=== PATIENT | male | born 1965 | race African-American/Black ===

== ENCOUNTER 2019-08-11 12:57 | Inpatient (IN) | payer MEDICARE ==
[~2019-08-11] VITALS: Ht 185.4 cm; Wt 142.0 kg
[2019-08-11 14:08] LABS: BASOPHILS % (AUTO) 0.7 % (0.0-5.0); EOSINOPHILS % (AUTO) 1.8 % (0.0-8.0); HEMATOCRIT 27.7 % (42-54); LYMPHOCYTES % (AUTO) 15.3 % (21.0-51.0); MEAN CORPUSCULAR HEMOGLOBIN 24.4 pg (27.0-33.0); MEAN CORPUSCULAR HGB CONC 31.4 g/dL (32.0-36.0); MEAN CORPUSCULAR VOLUME 77.8 fL (79-99); NEUTROPHILS % (AUTO) 73.6 % (40.0-77.0); PLATELET COUNT (AUTO) 471 K/uL (130-400); RED BLOOD CELL COUNT(AUTO) 3.56 MIL/uL (4.50-6.20); RED CELL DISTRIBUTION WIDTH 18.4 % (11.0-15.5); WHITE BLOOD COUNT (AUTO) 10.6 K/uL (4.8-10.8)
[2019-08-11 14:21] LABS: INR 1.12 (0.85-1.15); PARTIAL THROMBOPLASTIN TIME 32.1 SEC (26.3-35.5)
[2019-08-11 14:23] LABS: ALBUMIN 2.1 g/dL (3.5-5.0); BILIRUBIN,TOTAL 0.5 mg/dL (0.2-1.0); POTASSIUM 4.3 mmol/L (3.5-5.1); TOTAL PROTEIN, SERUM 6.7 g/dL (6.0-8.3)
[2019-08-11] MEDS ORDERED: PHARMACY COMMUNICATION MISC SCH (16:15)
[2019-08-11 16:46] LABS: % IRON SATURATION 35.9 % (30-44)
[2019-08-11 20:00] VITALS: BP 105/47
[2019-08-11] MEDS: GABAPENTIN 300 MG CAPSULE PO SCH (21:00)
[2019-08-11] MEDS: PANTOPRAZOLE SODIUM 40 MG TABLET.DR PO SCH (21:04)
[2019-08-11] MEDS ORDERED: GABAPENTIN 300 MG CAPSULE ONE (21:08)
[2019-08-11] MEDS: CHOLESTYRAMINE PACKET 4 GM PACKET PO SCH (21:17)
[2019-08-11 22:50] VITALS: BP 99/47
[2019-08-12 00:20] VITALS: BP 107/52
[2019-08-12 04:33] VITALS: BP 113/71
[2019-08-12] MEDS ORDERED: PANT40TA54 PO (05:46)
[2019-08-12] MEDS ORDERED: FOLI0.8T PO (05:46)
[2019-08-12] MEDS ORDERED: GABA-529 PO (05:46)
[2019-08-12] MEDS ORDERED: QUESL4 PO (05:46)
[2019-08-12] MEDS ORDERED: FOLI1TAB61 PO (05:46)
[2019-08-12] MEDS ORDERED: MIDO10TA PO (05:46)
[2019-08-12 06:01] LABS: EOSINOPHILS % (AUTO) 3.1 % (0.0-8.0); HEMATOCRIT 29.7 % (42-54); LYMPHOCYTES % (AUTO) 16.3 % (21.0-51.0); MEAN CORPUSCULAR HEMOGLOBIN 24.8 pg (27.0-33.0); MEAN CORPUSCULAR HGB CONC 31.6 g/dL (32.0-36.0); MEAN CORPUSCULAR VOLUME 78.4 fL (79-99); MONOCYTES % (AUTO) 7.2 % (3.0-13.0); NEUTROPHILS % (AUTO) 70.8 % (40.0-77.0); PLATELET COUNT (AUTO) 408 K/uL (130-400); RED BLOOD CELL COUNT(AUTO) 3.79 MIL/uL (4.50-6.20); RED CELL DISTRIBUTION WIDTH 18.9 % (11.0-15.5); WHITE BLOOD COUNT (AUTO) 8.3 K/uL (4.8-10.8)
[2019-08-12 06:25] LABS: MAGNESIUM 2.1 mg/dL (1.80-2.40); PHOSPHORUS 7.8 mg/dL (2.5-4.9); POTASSIUM 4.4 mmol/L (3.5-5.1)
[2019-08-12 06:28] LABS: CREATININE 19.8 mg/dL (0.5-1.5)
[2019-08-12] MEDS: GABAPENTIN 300 MG CAPSULE PO SCH ×3 (09:00→20:28)
[2019-08-12] MEDS: PANTOPRAZOLE SODIUM 40 MG TABLET.DR PO SCH ×2 (09:00→20:27)
[2019-08-12] MEDS: CHOLESTYRAMINE PACKET 4 GM PACKET PO SCH ×2 (09:00→20:28)
--- NOTE | 2019-08-12 09:34 | NUR ---
DCP: SKILLED NURSING PLACEMENT/ [facility] Tena met with pt who deferred me to Lily Ho [phone]. "It's too early to be answering all these questions". Tena called and she reports that pt lives with her at home. Pt on SSD, is bed bound, total care. states pt was in [facility] 05/27 for 2 1/2 weeks then sent to [facility] and was just released this . states that [facility] was setup for nursing 2x a week and PT 2x a week since dc, but has had to take [facility] to care for pt at home. states he has cane walker w/c, hospital bed mitesh lift shower chair, but she can not do it alone. states she and pt have contacted [facility] and was waiting to discuss manager terminal placement with them, but [facility] has not called back. wants to pursue placement at [facility] during this admission. Pt is over income for [facility] Medicaid. gave verbal consent for referral to [facility]. CM to make referral, follow and assist as needed Addendum: 08/12/19 at 0941 by ARNEL VERA Amended: Links added.
[2019-08-12] MEDS ORDERED: HEPARIN SODIUM 1000UNIT/ML 10ML VIAL ONE (11:49)
[2019-08-12] MEDS ORDERED: LIDOCAINE HCL 1% MDV 50ML VIAL ONE (11:50)
[2019-08-12] MEDS ORDERED: FENTANYL CITRATE PF 50 MCG/1 ML 2ML VIAL ONE (11:50)
[2019-08-12] MEDS ORDERED: MIDAZOLAM HCL 1 MG/ML 2ML VIAL ONE (11:50)
[2019-08-12] MEDS ORDERED: IODIXANOL 320 MG/ML 100 ML VIAL ONE (12:44)
[2019-08-12 15:27] VITALS: BP 126/59
--- NOTE | 2019-08-12 19:37 | NUR ---
REFUSED CT SCAN PATIENT HAS REFUSED CT OF LUMBAR SPINE, CT HEAD/BRAIN, CT THORACIC SPINE, TOLD DESIGN LEAD THAT HE IS IN TOO MUCH PAIN FOR THE PROCEDURE. CALLED DR MIKE TO NOTIFY OF PATIENT REFUSING CT'S. PASSED ON REPORT TO NIGHTSHIFT STAFF WELL.
[2019-08-12 20:08] VITALS: BP 110/54
[2019-08-12] MEDS: Vitamin B Complex/Vit C/Folic Acid PO SCH (20:28)
[2019-08-12] MEDS: FOLIC ACID 1 MG TABLET PO SCH (20:28)
[2019-08-13] VITALS (7 sets, daily range): BP systolic 88–123; BP diastolic 48–69
[2019-08-13] MEDS: GABAPENTIN 300 MG CAPSULE PO SCH ×3 (09:00→21:26)
[2019-08-13] MEDS ORDERED: PHARMACY COMMUNICATION MISC SCH (09:15)
[2019-08-13] MEDS: PANTOPRAZOLE SODIUM 40 MG TABLET.DR PO SCH ×2 (09:39→21:25)
[2019-08-13] MEDS: Vitamin B Complex/Vit C/Folic Acid PO SCH (09:39)
[2019-08-13] MEDS: CHOLESTYRAMINE PACKET 4 GM PACKET PO SCH ×2 (09:39→21:25)
[2019-08-13] MEDS: FOLIC ACID 1 MG TABLET PO SCH (09:39)
[2019-08-13] MEDS ORDERED: COMPOUND PO MISCELLANEOUS 1 EACH MISC MISC PRN (10:00)
[2019-08-13] MEDS ORDERED: GABAPENTIN 100 MG CAPSULE ONE ×2 (10:34→14:37)
[2019-08-13] MEDS: MIDODRINE HCL 5 MG TABLET PO SCH (13:59)
[2019-08-13] MEDS: VANCOMYCIN 250MG/5ML ORAL SOLUTION 40ML PO SCH ×6 (14:00→21:28)
[2019-08-13] MEDS ORDERED: HEPARIN SODIUM 5000UNIT/ML 1ML VIAL ONE (14:38)
[2019-08-13] MEDS: EPOETIN ALFA 10,000 UNIT/ML VIAL SQ SCH (14:41)
[2019-08-13 17:02] LABS: CREATININE 3.1 mg/dL (0.5-1.5)
[2019-08-13 17:11] LABS: POTASSIUM 2.9 mmol/L (3.5-5.1)
[2019-08-13] MEDS: SEVELAMER HCL 800 MG TABLET PO SCH (17:49)
[2019-08-13] MEDS ORDERED: POTASSIUM CHLORIDE 20 MEQ ERTAB PO SCH (18:30)
[2019-08-14 04:00] VITALS: BP 84/65
[2019-08-14 08:00] VITALS: BP 74/36
[2019-08-14] MEDS: SEVELAMER HCL 800 MG TABLET PO SCH ×3 (08:00→16:24)
--- NOTE | 2019-08-14 08:00 | NUR ---
refusing lab pt awakens with verbal stimulation, oriented to person and place. pt refusing medications, vs, and lab draws. Dr Diana Morales in to see pt, spoke to pt, pt continues to refuse. pt educated on importance of taking medication as prescribed and having labs drawn. pt refused
[2019-08-14] MEDS: GABAPENTIN 300 MG CAPSULE PO SCH ×3 (09:00→21:09)
[2019-08-14] MEDS: PANTOPRAZOLE SODIUM 40 MG TABLET.DR PO SCH ×2 (09:36→21:09)
[2019-08-14] MEDS: VANCOMYCIN 250MG/5ML ORAL SOLUTION 40ML PO SCH ×8 (09:36→21:10)
[2019-08-14] MEDS: MIDODRINE HCL 5 MG TABLET PO SCH ×2 (09:36→21:09)
[2019-08-14] MEDS: Vitamin B Complex/Vit C/Folic Acid PO SCH (09:36)
[2019-08-14] MEDS: CHOLESTYRAMINE PACKET 4 GM PACKET PO SCH ×2 (09:37→21:11)
[2019-08-14] MEDS: FOLIC ACID 1 MG TABLET PO SCH (09:37)
[2019-08-14] MEDS: HEPARIN SODIUM 5000UNIT/ML 1ML VIAL SQ SCH (09:50)
--- NOTE | 2019-08-14 10:00 | NUR ---
WORKERS COMPENSATION DEFENSE ATTORNEY visit Denisha Eldridge WORKERS COMPENSATION DEFENSE ATTORNEY in to see pt, aware of temperature and pt refusing labs and vs. assessed and spoke to pt.
[2019-08-14] MEDS ORDERED: ACETAMINOPHEN 325 MG TAB PO PRN (11:00)
--- NOTE | 2019-08-14 13:27 | NUR ---
ATTEMPTED DCP WITH PATIENT/UPSET TRIED TO MEET WITH PATIENT IN ROOM BUT PATIENT UPSET AND DID NOT WISH TO SPEAK TO ME AT THE MOMENT, WILL FOLLOW UP AT LATE TIME/DATE.
[2019-08-14 16:00] VITALS: BP 112/76
--- NOTE | 2019-08-14 17:10 | NUR ---
refusing medication call placed to germination testing manager, Denisha Eldridge KIER OPERATOR returned call and made aware pt temp 101.1, refusing medications and labs. call placed to Aaliyah, pts meteorology instructor and made aware of pts status and refusing labs, medications, vital signs; stated will talk to pt.
--- NOTE | 2019-08-14 18:00 | NUR ---
repositioned pt awake and alert, encouraged to take medications, refuses. states not wanting any interventions done. refused site care to right femoral dialysis catheter. educated on importance of taking medications and importance of labs. pt refused to eat, assistance offered, refused.
[2019-08-14 19:43] VITALS: BP 95/41
[2019-08-14 23:37] VITALS: BP 131/67
[2019-08-15 04:00] VITALS: BP 99/53
[2019-08-15 08:00] VITALS: BP 114/70
[2019-08-15] MEDS: SEVELAMER HCL 800 MG TABLET PO SCH ×4 (08:00→11:30)
[2019-08-15 08:59] LABS: BASOPHILS % (AUTO) 0.4 % (0.0-5.0); EOSINOPHILS % (AUTO) 1.2 % (0.0-8.0); HEMATOCRIT 25.7 % (42-54); LYMPHOCYTES % (AUTO) 5.1 % (21.0-51.0); MEAN CORPUSCULAR HEMOGLOBIN 25.1 pg (27.0-33.0); MEAN CORPUSCULAR HGB CONC 31.5 g/dL (32.0-36.0); MEAN CORPUSCULAR VOLUME 79.6 fL (79-99); MONOCYTES % (AUTO) 3.4 % (3.0-13.0); NEUTROPHILS % (AUTO) 88.7 % (40.0-77.0); PLATELET COUNT (AUTO) 259 K/uL (130-400); RED BLOOD CELL COUNT(AUTO) 3.23 MIL/uL (4.50-6.20); RED CELL DISTRIBUTION WIDTH 19.4 % (11.0-15.5); WHITE BLOOD COUNT (AUTO) 16.4 K/uL (4.8-10.8)
[2019-08-15 09:16] LABS: BILIRUBIN,TOTAL 0.7 mg/dL (0.2-1.0); MAGNESIUM 1.8 mg/dL (1.80-2.40); PHOSPHORUS 4.1 mg/dL (2.5-4.9); POTASSIUM 3.5 mmol/L (3.5-5.1); TOTAL PROTEIN, SERUM 6.4 g/dL (6.0-8.3)
[2019-08-15 09:19] LABS: INR 1.23 (0.85-1.15); PROTHROMBIN TIME 13.2 SEC (9.6-11.6)
[2019-08-15 09:44] LABS: CREATININE 10.1 mg/dL (0.5-1.5)
[2019-08-15] MEDS: PANTOPRAZOLE SODIUM 40 MG TABLET.DR PO SCH ×2 (09:49→21:00)
[2019-08-15] MEDS: FOLIC ACID 1 MG TABLET PO SCH (09:49)
[2019-08-15] MEDS: Vitamin B Complex/Vit C/Folic Acid PO SCH (09:50)
[2019-08-15] MEDS: MIDODRINE HCL 5 MG TABLET PO SCH ×2 (09:50→21:00)
[2019-08-15] MEDS: CHOLESTYRAMINE PACKET 4 GM PACKET PO SCH ×2 (09:51→21:00)
[2019-08-15] MEDS: VANCOMYCIN 250MG/5ML ORAL SOLUTION 40ML PO SCH ×8 (09:52→21:00)
[2019-08-15] MEDS: HEPARIN SODIUM 5000UNIT/ML 1ML VIAL SQ SCH (10:06)
[2019-08-15] MEDS: GABAPENTIN 100 MG CAPSULE PO SCH ×3 (10:39→21:00)
[2019-08-15 11:18] VITALS: BP 111/53
[2019-08-15 17:11] VITALS: BP 100/72
--- NOTE | 2019-08-15 17:29 | NUR ---
Dr. Awad at bedside he is aware that patient is refusing medications vancomycin PO and patient is colonized with cdiff infection with a elevated WBC count and pro calcitonin level.Dr. Awad made patient aware of serious risk of him refusing medication. Patient decided to take medication as witnessed by myself and Dr. Awad. Patient states he wants to go home. We will make attempts with physical therapy tomorrow to ambulate patient and if MD is ok perhaps consider antibiotic therapy at home as per pt request.
[2019-08-15 19:52] VITALS: BP 120/66
--- NOTE | 2019-08-15 21:30 | NUR ---
Assessment Unable to assess patient. Patient refused assessment and night medication. While passing night medications, patient was asked to lift right arm in order to scan arm band. Patient stated he could not move right arm at all. When asked why he was unable to move right arm patient stated, "Why are you asking stupid questions that don't matter?" Medications were scanned and during teaching/ education of meds, patient was told about he was getting a BP medication. Patient said he didn't have high blood pressure. When trying to explain it was for low blood pressure patient became argumentative, angry, and verbally abusive. He refused all medications for the night. Patient said" Get the Fuxx out of my room, you're annoying!" Explained to patient verbal abuse would not be tolerated and patient again stated, "Get the Fuxx out of my room." Patient stated he wanted to leave. Patient signed AMA form. CONCHA Rowe Electromedical Equipment Technician was notified. Lily was called and told to come picking machine operator helper her . She wanted to speak to , hung up before she could be transferred. She never answered the phone after several attempts. She did not answer when patient attempted to call her.Patient was given the number to [facility] for pickup. Dispatch at EMS told him it would be one thousand dollar charge and he told them not to pick him up.
[2019-08-15 23:24] VITALS: BP 109/66
--- NOTE | 2019-08-16 04:00 | NUR ---
Refused morning labs
[2019-08-16 04:24] VITALS: BP 107/59
[2019-08-16] MEDS: SEVELAMER HCL 800 MG TABLET PO SCH ×3 (08:00→17:00)
--- NOTE | 2019-08-16 08:00 | NUR ---
ASSESSMENT ENCOUNTERED PT A&OX3, CALM COOPERATIVE AND DOES NOT APPEAR TO BE IN ANY DISTRESS NOR ANY NEURO DEFICITS PRESENT. PT DID CONFIRM THAT HE HAS DECIDED TO LEAVE AGAINST MEDICAL ADVICE AND ACCEPTS RESPONSIBILITY OF RISKS THAT INCLUDE, BUT NOT LIMITED TO, STROKE, MYOCARDIAL INFARCTION, . PT STATES HE USES [facility] [employer] [employer] FOR TRANSPORTATION TO AND FROM HOME FROM DIALYSIS. PT REFUSES VITAL SIGNS, MEDICATIONS AND ASSESSMENT AND DESIRES TO GO HOME. CALL LIGHT WITHIN REACH, DR LOPES NOTIFIED.
--- NOTE | 2019-08-16 08:20 | NUR ---
[facility] STATED THAT SINCE HE IS LEAVING AGAINST MEDICAL ADVICE, PT'S INSURANCE MAY NOT COVER TRANSPORTATION AND THEREFORE, REQUIRES PAYMENT UP FRONT PRIOR TO TRANSPORTATION. PT STATED THAT HE DOES NOT HAVE MONEY TO PAY AND WILL ATTEMPT TO MAKE PHONE CALLS FROM FRIENDS AND FAMILY TO PICK HIM UP. CALL LIGHT WITHIN REACH.
--- NOTE | 2019-08-16 08:30 | NUR ---
Per DANDRE Gray to disregard Physical Therapy order due to patient is leaving AMA. Addendum: 08/16/19 at 1117 by MARILUZ HE PT PT Amended: Links added.
[2019-08-16] MEDS: VANCOMYCIN 250MG/5ML ORAL SOLUTION 40ML PO SCH ×8 (09:00→21:12)
[2019-08-16] MEDS: Vitamin B Complex/Vit C/Folic Acid PO SCH (09:00)
[2019-08-16] MEDS: EPOETIN ALFA 10,000 UNIT/ML VIAL SQ SCH (09:00)
[2019-08-16] MEDS: CHOLESTYRAMINE PACKET 4 GM PACKET PO SCH ×3 (09:00→21:00)
[2019-08-16] MEDS: PANTOPRAZOLE SODIUM 40 MG TABLET.DR PO SCH ×2 (09:00→20:57)
[2019-08-16] MEDS: GABAPENTIN 100 MG CAPSULE PO SCH ×3 (09:00→20:54)
[2019-08-16] MEDS: MIDODRINE HCL 5 MG TABLET PO SCH ×3 (09:00→20:54)
[2019-08-16] MEDS: FOLIC ACID 1 MG TABLET PO SCH (09:00)
--- NOTE | 2019-08-16 10:00 | NUR ---
[facility] consult Patient refused [facility] assessment. Patient states he does not have breakdown as it healed when he was at [place].
--- NOTE | 2019-08-16 10:45 | NUR ---
CM NOTE/DCP HOME REPORT GIVEN TO ME BY PRIMARY NURSE, AJ AMOS, IN REGARDS TO PATIENT WANTING TO LEAVE AMA AND REFUSING MEDICATION, PHYSICAL THERAPY, LAWORK AND TESTING. MEET WITH PATIENT AND NURSE IN ROOM. CONVERSATION INITIATED BY SPEAKING ABOUT HOME ENVIRONMENT. PATIENT STATED HE WAS AT [facility] THEN WENT TO A SNF FOR REHAB THEN HOME WITH [facility] FOR PT THAT GOES 2 TIMES PER WEEK. INFORMED OF REQUEST FROM FOR [facility] SNF FOR PT, PATIENT STATES THAT INITIALLY HE WAS INTERESTED BUT ONLY SKILLED SNF BUT HAS CHANGED HIS MIND AND WANTS TO GO HOME BACK WITH [facility] TO START PT AGAIN. PATIENT IS AAOX3. ASKED AGAIN IF HE WANTED TO GO TO SKILLED SNF FOR REHAB, DECLINED. PATIENT STATES HE WANTS TO LEAVE HOSPITAL AND DOESNT UNDERSTAND WHY THE DOCTORS ARE KEEPING HIM STILL, PENDING LABWORK AND REFUSAL OF TEST STATES BY AJ AMOS, PATIENT IS CURRENTLY TRYING TO MAKE ARRANGEMENTS TO GO BACK HOME AMA VIA EMS. CM DIRECTOR MADE AWARE.
--- NOTE | 2019-08-16 15:17 | NUR ---
CM NOTE/DENIED AMA, DECLINED SNF MEET WITH PATIENT IN ROOM ONCE AGAIN. CURRENTLY TRYING TO LEAVE AMA, NOW CHANGED HIS MIND AND IS GOING TO STAY. HAS AGREED TO TAKE MEDICATIONS DIRECTED. SKILLED SNF SERVICES OFFERED AGAIN, PATIENT DECLINED. STATED HE WILL GO HOME WITH [facility] ARRANGED PRIOR. CONCERNS MADE AWARE, IN PREVIOUS NOTE, SHE STATED SHE REQUIRED SUPPORT FOR CARE AT HOME AND HAD TO TAKE TIME OFF WORK TO CARE FOR HIM. PER PATIENT " SHES FUCKING LYING AND I CANT BELIEVE SHE SAID THAT, IM FINE AT HOME AND DIDNT HAVE TO TAKE TIME OFF AT ALL" LIST OF PRIVATE PAY PROVIDERS GIVEN TO PATIENT WELL BUSINESS CARD FOR DEPARTMENT OF AGING AND DISABILITY, OFFERED TO CALL DEPARTMENT OF [facility] BUT PATIENT DECLINED. DCP HOME WITH [facility] ARRANGED PRIOR.
[2019-08-16 16:31] VITALS: BP 107/62
[2019-08-16] MEDS ORDERED: HEPARIN SODIUM 5000UNIT/ML 1ML VIAL SQ PRN (17:45)
[2019-08-16 19:31] VITALS: BP 112/55
[2019-08-16] MEDS: HEPARIN 25000 UNITS/250 ML D5W 250 ML IV SCH (20:59)
[2019-08-16 23:16] VITALS: BP 98/61
[2019-08-17 03:25] VITALS: BP 100/58
[2019-08-17 05:10] LABS: HEPATITIS A ANTIBODY IGM Negative (Negative); HEPATITIS B CORE IGM Negative (Negative); HEPATITIS Bs ANTIGEN SCREEN P Negative (Negative)
[2019-08-17] MEDS: HEPARIN 25000 UNITS/250 ML D5W 250 ML IV SCH (05:23)
[2019-08-17] MEDS: SEVELAMER HCL 800 MG TABLET PO SCH ×3 (08:09→16:17)
[2019-08-17] MEDS: MIDODRINE HCL 5 MG TABLET PO SCH ×2 (08:10→20:15)
[2019-08-17] MEDS: VANCOMYCIN 250MG/5ML ORAL SOLUTION 40ML PO SCH ×8 (08:12→20:16)
[2019-08-17 08:18] VITALS: BP 99/58
[2019-08-17] MEDS: CHOLESTYRAMINE PACKET 4 GM PACKET PO SCH ×2 (08:18→19:27)
[2019-08-17] MEDS: GABAPENTIN 100 MG CAPSULE PO SCH ×3 (08:28→20:15)
[2019-08-17] MEDS: FOLIC ACID 1 MG TABLET PO SCH (08:28)
[2019-08-17] MEDS: PANTOPRAZOLE SODIUM 40 MG TABLET.DR PO SCH ×2 (08:28→20:15)
[2019-08-17] MEDS: Vitamin B Complex/Vit C/Folic Acid PO SCH (09:00)
--- NOTE | 2019-08-17 10:19 | NUR ---
CM NOTE/ [facility] CALLED, SPOKE TO BON. PER BON, PATIENT CURRENTLY HAS SERVICES WITH [facility] FOR NURSING AND PT, OK TO RETURN ONCE HOSPITAL STAY IS OVER. PER DENNIS FILLED PRIOR, CLINICAL PACKET FAXED. WILL HAVE NURSE CALL REPORT WHEN DC READY.
[2019-08-17 11:58] VITALS: BP 96/53
[2019-08-17] MEDS ORDERED: LOPERAMIDE 1 MG/7.5 ML UDCUP PO SCH (13:45)
--- NOTE | 2019-08-17 14:01 | NUR ---
received a call from lab; ptt greater than 120 i have already stopped the heparin drip per dr menjivar order and will be starting elequis. also received order for limotil for pt's diarrhia
[2019-08-17 15:30] VITALS: BP 98/62
--- NOTE | 2019-08-17 15:32 | NUR ---
pt has had 2 loose bm's today; pt has redness to rectal and buttock area in skin folds; i have gently cleansed the area's both times and applied skin barrier cream; pt does have pain to the areas when cleaning him. i have also twice applied lotions to pt's feet and lower legs to his severy dry flaking skin.
--- NOTE | 2019-08-17 16:48 | NUR ---
CM NOTE/NO ANSWER FROM [facility]SE [facility]OUSE CALLED AT NUMBER LISTED ON FACESHEET TO MAKE HER AWARE OF POSSIBLE DC HOME VIA EMS TOMORROW 08/17, NO ANSWER AND VOICEMAIL FULL, UNABLE TO LEAVE VOICEMAIL. PRIMARY NURSE, KILLIAN AMOS, MADE AWARE.
[2019-08-17 19:48] VITALS: BP 109/50
[2019-08-17] MEDS: APIXABAN 2.5 MG TABLET PO SCH (20:16)
[2019-08-18 05:04] VITALS: BP 93/51
[2019-08-18] MEDS: CHOLESTYRAMINE PACKET 4 GM PACKET PO SCH (07:18)
[2019-08-18] MEDS: SEVELAMER HCL 800 MG TABLET PO SCH ×3 (07:33→17:18)
[2019-08-18 08:09] VITALS: BP 101/50
[2019-08-18] MEDS: LOPERAMIDE 1 MG/7.5 ML UDCUP PO PRN ×2 (08:49→13:47)
[2019-08-18] MEDS: EPOETIN ALFA 10,000 UNIT/ML VIAL SQ SCH (08:49)
[2019-08-18] MEDS: Vitamin B Complex/Vit C/Folic Acid PO SCH (09:00)
[2019-08-18] MEDS: HEPARIN SODIUM 5000UNIT/ML 1ML VIAL SQ SCH (09:24)
--- NOTE | 2019-08-18 09:30 | NUR ---
HEPARIN AND LOVENOX GIVEN TO DIALYSIS NURSE TO ADMINISTER DURING THE DIALYSIS SESSION THIS AM; I HAVE ALSO GIVEN LOMOTIL FOR PTS DIARRHIA.
--- NOTE | 2019-08-18 10:30 | NUR ---
CM NOTE/CALL TO SPOUSE NEEDED PER NURSING STAFF AND PRIMARY NURSE, KILLIAN AMOS, PATIENT READY FOR DC TODAY. INFORMED KILLIAN THAT IS TO BE CALLED TO LET HER KNOW IF TRANSFER VIA EMS. INFORMED NURSE TO SECURE FAMILY MEMBER AT HOME OR IF PATIENT HAS KEYS TO OPEN HOME BEFORE CALLING EMS TRANSFER, KILLIAN AGREED. STEPHANIE AMOS, NURSE OVERSEEING KILLIAN AMOS, MADE AWARE AND VERBALIZED UNDERSTANDING.
--- NOTE | 2019-08-18 10:58 | NUR ---
NUTRITION EDUCATION KAREN offered Renal Dialysis Nutrition Education via phone, Pt declines secondary to received education in past. KAREN provided nutrition materials in Pt chart, Pt agreed. Addendum: 08/18/19 at [address] Amended: Links added.
--- NOTE | 2019-08-18 11:05 | NUR ---
RDSCREEN - LOS X 6 Pt admitted with Clotted AV fistula. Hx ESRD on HD, Phosphate in binder in place. Interviewed Pt via phone secondary to isolation protocol. Pt reports Good appetite, no GI distress and "everything is great!". Pt denies need for nutrition education;RD provided nutrition materials (Dialysis/Low Phos Nutrition) in Pt chart, Pt agrees. Recommend continue Renal Dialysis diet order Dialysis/Low Phos nutrition education in Pt chart RD to continue to monitor. Please notify as additional nutrition concerns arise. Thank you. Addendum: 08/18/19 at [address] Amended: Links added.
[2019-08-18 11:44] VITALS: BP 82/49
[2019-08-18] MEDS: VANCOMYCIN 250MG/5ML ORAL SOLUTION 40ML PO SCH ×6 (13:00→17:19)
[2019-08-18] MEDS: MIDODRINE HCL 5 MG TABLET PO SCH ×2 (13:00→13:47)
[2019-08-18] MEDS: APIXABAN 2.5 MG TABLET PO SCH (13:44)
[2019-08-18] MEDS: FOLIC ACID 1 MG TABLET PO SCH (13:44)
[2019-08-18] MEDS: PANTOPRAZOLE SODIUM 40 MG TABLET.DR PO SCH (13:44)
[2019-08-18] MEDS: GABAPENTIN 100 MG CAPSULE PO SCH ×2 (13:45→13:48)
--- NOTE | 2019-08-18 14:43 | NUR ---
DR LOPES GAVE OK TO D/C PT HOME; I SPOKE TO DR LEAH MONTEMAYOR AND SHE STATED OK TO D/C HOME AND TO ALL [facility] AND LET THEM KNOW HE WILL BE THERE THURSDAY; I HAVE CALLED AND INFORMED THEM; PT STATES HIS AND SON ARE AT HOME FOR EMS TRANSPORT HOME TO ACCEPT HIM. I WILL CALL D/C REPORT TO [facility] AND LET THEM KNOW HE IS BEING D/C .
[2019-08-18] MEDS ORDERED: APIX2.5T PO (15:17)
[2019-08-18] MEDS ORDERED: VANCO250PO PO (15:17)
[2019-08-18] MEDS ORDERED: Folic Acid/Vitamin B Comp W-C PO (15:23)
[2019-08-18] MEDS ORDERED: SEVE800 PO (15:23)
[2019-08-18] MEDS ORDERED: CHOL4PAC21 PO (15:23)
--- NOTE | 2019-08-18 16:43 | NUR ---
D/C REPORT CALLED TO JAN AT [facility]; EMS TRANSPORT ARRANGED AND WILL BE COMING TO TRANSPORT HIM HOME; I HAVE CALLED HIS ZAC AND SHE IS AT HOME WAITING FOR HIM.
--- NOTE | 2019-08-18 17:31 | NUR ---
PT STATED UNDERSTANDING OF ALL DC INSTRUCTIONS INCLUDING TO F/U WITH DR BRADLEY ON 09-01-19 AT 1330; AND THAT PERSCRIPTIONS HAVE BEEN SENT TO B PHARMACY IN [facility].; TO GO THURSDAY TO [facility]; IV ACCESS REMOVED AND EMS SHOULD BE PICKING UP PATIENT SOON
[2019-08-18 17:41] VITALS: BP 115/66
== END 2019-08-18 18:30 | disposition home health service (06) | DRG 252 ==
LOC: EDH 12:57 → EDHIP 15:49 → 4BH 08-12 14:35
PROVIDERS: ADMIT Internal Medicine; ATTEND Internal Medicine
PROC: 5A1D70Z Performance of Urinary Filtration, Intermittent, Less than 6 Hours Per Day (ICD-10-PCS; 2019-08-10)
PROC: 037Y3ZZ Dilation of Upper Artery, Percutaneous Approach (ICD-10-PCS; 2019-08-12)
PROC: 5A1D70Z Performance of Urinary Filtration, Intermittent, Less than 6 Hours Per Day (ICD-10-PCS; 2019-08-12)
PROC: 0JHL3XZ Insertion of Tunneled Vascular Access Device into Right Upper Leg Subcutaneous Tissue and Fascia, Percutaneous Approach (ICD-10-PCS; 2019-08-12)
PROC: 06HM33Z Insertion of Infusion Device into Right Femoral Vein, Percutaneous Approach (ICD-10-PCS; 2019-08-12)
PROC: B31J1ZZ Fluoroscopy of Left Upper Extremity Arteries using Low Osmolar Contrast (ICD-10-PCS; 2019-08-12)
PROC: B51W1ZZ Fluoroscopy of Dialysis Shunt/Fistula using Low Osmolar Contrast (ICD-10-PCS; 2019-08-12)
PROC: 5A1D70Z Performance of Urinary Filtration, Intermittent, Less than 6 Hours Per Day (ICD-10-PCS; 2019-08-13)
PROC: 5A1D70Z Performance of Urinary Filtration, Intermittent, Less than 6 Hours Per Day (ICD-10-PCS; principal; 2019-08-15)
PROC: 5A1D70Z Performance of Urinary Filtration, Intermittent, Less than 6 Hours Per Day (ICD-10-PCS; 2019-08-18)
DX: T82.868A Thrombosis due to vascular prosthetic devices, implants and grafts, initial encounter (principal); N18.6 End stage renal disease; N25.81 Secondary hyperparathyroidism of renal origin; A04.72 Enterocolitis due to Clostridium difficile, not specified as recurrent; I82.621 Acute embolism and thrombosis of deep veins of right upper extremity; Z68.41 Body mass index [BMI] 40.0-44.9, adult; I12.0 Hypertensive chronic kidney disease with stage 5 chronic kidney disease or end stage renal disease; E66.01 Morbid (severe) obesity due to excess calories; D63.1 Anemia in chronic kidney disease; Y83.2 Surgical operation with anastomosis, bypass or graft as the cause of abnormal reaction of the patient, or of later complication, without mention of misadventure at the time of the procedure; I73.9 Peripheral vascular disease, unspecified; Z99.2 Dependence on renal dialysis; E87.6 Hypokalemia; I25.10 Atherosclerotic heart disease of native coronary artery without angina pectoris; E21.3 Hyperparathyroidism, unspecified; M54.9 Dorsalgia, unspecified; R53.81 Other malaise; Z74.01 Bed confinement status; Z79.01 Long term (current) use of anticoagulants; Z86.718 Personal history of other venous thrombosis and embolism; Z98.84 Bariatric surgery status
CPT/HCPCS: 36415; 36558; 36905; 71045; 80048; 80053; 80074; 82270; 82728; 82948; 83540; 83550; 83735; 84100; 84145; 84443; 84484; 85025; 85610; 85730; 87040; 87507; 90935; 93005; 93925; 93971; 93990; 99156; 99157; C1757; C1769; C1894; G0378; J0885; J1644; J2250; J3010; J3370; J3490; Q9967